=== PATIENT | female | born 1990 | race American Indian/Alaskan Native ===

== ENCOUNTER 2021-06-26 21:58 | Emergency (ER) | payer SELFPAY ==
[2021-06-26 22:39] VITALS: BP 134/72
--- NOTE | 2021-06-27 00:03 | Emergency Department Report ---
ED General Adult HPI - General Chief complaint: Dental/Oral Stated complaint: PAIN IN MOUTH PUI?: No Time Seen by Provider: 06/26/21 23:29 Source: patient, RN notes reviewed Mode of arrival: Ambulatory Limitations: No Limitations - History of Present Illness Initial comments: The patient was evaluated in the emergency department for symptoms described in the history of present illness. He/she was evaluated in the context of the global COVID-19 pandemic, which necessitated consideration that the patient might be at risk for infection with the virus that causes COVID-19. Institutional protocols and algorithms that pertain to the evaluation of patients at risk for COVID-19 are in a state of rapid change based on informati on released by regulatory bodies including the CDC and federal and state organizations. These policies and algorithms were followed during the patient's care in the emergency department. Please note that these policies, procedures and recommendations changed on a rapid basis. The patient is a 30-year-old female. She is not known to myself previously. She states that she is not . She presents to the ER with a complaint of dental pain, near teeth #16, 15, 17 and 18, sensitivity to hot and cold, and left-sided ear discomfort. No neck pain, fever, nausea or vomiting. No tinnitus, no loss of auditory acuity. No stridor. Patient has not taken anything [id number] for pain. She brushes her teeth at least once daily. She does not floss. The patient has not had a dental c leaning recently that she can recall. She denies additional injuries or complaints -: Gradual, days(s) Location: mouth (Mouth, left ear) Quality: aching Consistency: intermittent Improves with: rest Worsens with: eating, movement Associated Symptoms: denies other symptoms - Related Data Previous Rx's Medication Instructions Recorded Last Taken Type Acetaminophen [Non-Aspirin Extra 500 mg PO Q6HR PRN #30 tablet 06/27/21 Unknown Rx Strength] Chlorhexidine Mouthwash [Peridex] 15 ml MM BID #1 bottle 06/27/21 Unknown Rx Ibuprofen [Motrin] 600 mg PO Q8H PRN #30 tablet 06/27/21 Unknown Rx ED Review of Systems ROS: Stated complaint: PAIN IN MOUTH Other details as noted in HPI Constitutional: denies: fever ENT: dental pain. denies: hearing loss, epistaxis, congestion Respiratory: denies: cough Cardiovascular: denies: chest pain Gastrointestinal: denies: abdominal pain Psychiatric: anxiety ED Past Medical Hx - Past Medical History Previous Medical History?: No - Surgical History Past Surgical History?: No - Social History Smoking Status: Never Smoker Substance Use Type: None - Medications Home Medications: Home Medications Medication Instructions Recorded Confirmed Last Taken Type Acetaminophen [Non-Aspirin Extra 500 mg PO Q6HR PRN #30 tablet 06/27/21 Unknown Rx Strength] Chlorhexidine Mouthwash [Peridex] 15 ml MM BID #1 bottle 06/27/21 Unknown Rx Ibuprofen [Motrin] 600 mg PO Q8H PRN #30 tablet 06/27/21 Unknown Rx ED Physical Exam - General Limitations: No Limitations General appearance: alert, in no apparent distress - Head Head exam: Present: atraumatic, normocephalic - Eye Eye exam: Present: normal appearance, EOMI. Absent: nystagmus - ENT ENT exam: Present: normal exam, normal orophraynx, mucous membranes moist, TM's normal bilaterally (There is no mastoid tenderness), normal external ear exam, other (Gingivitis is noted. Tenderness to percussion over tooth #17. There is no stridor or dysphonia. There is no elevation of the base of the tongue.) - Neck Neck exam: Present: normal inspection, full ROM. Absent: tenderness - Respiratory Respiratory exam: Present: normal lung sounds bilaterally. Absent: respiratory distress, wheezes, rales, rhonchi, stridor, decreased breath sounds - Cardiovascular Cardiovascular Exam: Present: regular rate, normal rhythm, normal heart sounds. Absent: bradycardia, tachycardia, irregular rhythm, systolic murmur, diastolic murmur, rubs, gallop - GI/Abdominal GI/Abdominal exam: Present: soft. Absent: distended, tenderness, guarding, rebound, rigid, pulsatile mass - Extremities Exam Extremities exam: Present: normal inspection, full ROM, other (2+ pulses noted in the bilateral upper extremities) - Back Exam Back exam: Present: normal inspection, full ROM. Absent: tenderness, CVA tenderness (R), CVA tenderness (L), paraspinal tenderness, vertebral tenderness - Neurological Exam Neurological exam: Present: alert, other (No facial droop. Tongue midline. Extraocular movements intact bilaterally. Facial sensation intact to light touch in V1, V2, V3 distribution bilaterally. 5 and a 5 strength in 4 extremities. Sensation intact to light touch in 4 extremities.). Absent: motor sensory deficit - Psychiatric Psychiatric exam: Present: normal affect, normal mood - Skin Skin exam: Present: warm, dry, intact, normal color. Absent: rash ED Course Vital Signs 06/26/21 22:37 Temperature 98.9 F Pulse Rate 70 Respiratory 18 Rate Blood Pressure 134/72 O2 Sat by Pulse 97 Oximetry ED Medical Decision Making - Lab Data Vital Signs 06/26/21 22:37 Temperature 98.9 F Pulse Rate 70 Respiratory 18 Rate Blood Pressure 134/72 O2 Sat by Pulse 97 Oximetry - Medical Decision Making Differential diagnosis, including but not limited to: Gingivitis, dentalgia, poor oral hygiene Assessment and plan: 30-year-old female with dentalgia. She is afebrile with reassuring vital signs. She is protecting her airway. She is not stridulous. Do not see any obvious significant abscesses. Counseled patient on need to follow-up with outpatient dentist. Floss once daily. [place] twice daily. Tylenol, ibuprofen, chlorhexidine. Outpatient resources. Return precautions reviewed. Does not appear to have an emergent medical condition present at this time. Critical care attestation.: If time is entered above; I have spent that time in minutes in the direct care of this critically ill patient, excluding procedure time. ED Disposition Clinical Impression: Dentalgia, Gingivitis Disposition: 01 HOME / SELF CARE / HOMELESS Is pt being admited?: No Does the pt Need Aspirin: No Condition: Good Instructions: Preventive Dental Care, Adult Additional Instructions: Advance diet as tolerated. [place] teeth twice daily. Floss once daily. Avoid consumption of alcohol, and smoke products. Follow-up with a dentist within the next week for routine dental care, hygiene and cleaning. Take the chlorhexidine mouthwash as recommended, and the pain medication as needed and directed. Please return to the emergency room right away with new pain, worsened pain, migration of pain, projectile vomiting, change in mental status, confusion, inability to speak or breathe, or any new, worsened or different symptoms not present on the initial emergency room evaluation. Prescriptions: Ibuprofen [Motrin] 600 mg PO Q8H PRN #30 tablet PRN Reason: Pain Acetaminophen [Non-Aspirin Extra Strength] 500 mg PO Q6HR PRN #30 tablet PRN Reason: Pain , Severe (7-10) Chlorhexidine Mouthwash [Peridex] 15 ml MM BID #1 bottle Referrals: [facility] [Outside] - 3-5 Days Forms: Work/School Release Form(ED)
[2021-06-27] MEDS ORDERED: IBUPROFEN 400 MG TAB PO ONE (01:33)
[2021-06-27] MEDS ORDERED: ACETAMINOPHEN 325 MG TAB ONE (01:33)
[2021-06-27] MEDS: IBUPROFEN 400 MG TAB PO ONE ×2 (01:37→01:40)
[2021-06-27] MEDS: ACETAMINOPHEN 325 MG TAB PO ONE ×2 (01:37→01:40)
== END 2021-06-27 01:34 | disposition home or self-care (01) ==
LOC: ED 21:58
DX: K05.10 Chronic gingivitis, plaque induced (principal); Z79.899 Other long term (current) drug therapy
CPT/HCPCS: 99282